=== PATIENT | male | born 1935 | race Caucasian/White ===

== ENCOUNTER 2019-05-21 08:56 | Outpatient (CLI) | payer MEDICARE, SELFPAY ==
--- NOTE | 2019-05-21 09:08 | USCV_ITS ---
Benny Dooley Age: 83 Gender: M : 1935 Exam Date: 05/21/2019 09:16 Ordering Phys: Manny Shaffer MD (Andy) ([email or web address] [place] Technologist: Emma Boyce [place] [facility] [place]: ATHEROSCLEROSIS Risk Factors: Previous Vascular Surgery: Right Brachial BP: / Left Brachial BP: / Right Left Velocity (cm/s) Spectral Plaque Velocity (cm/s) Spectral Plaque Syst/Diast Broadening Syst/Diast Broadening 105.80/14.30 Prox CCA 96.20 / 16.50 125.70/22.10 Mid CCA 96.20 / 11.90 98.10/ 16.50 Distal CCA 70.50 / 11.90 77.80/ 16.20 Prox ICA 116.90/ 15.00 89.60/ 13.00 Mid ICA 157.00/ 21.70 108.00/10.80 Distal ICA 115.30/ 30.10 205.80 ECA 262.10 0.86 ICA/CCA 1.63 Antegrade Vertebral Antegrade 23.30/ 5.90 cm/s 90.20/ 18.40 cm/s Tri Subclavian Bi 130.0 155.3 0 0 FINDINGS Comparison:. 10/23/18 Mild to moderate diffuse atherosclerotic plaque without elevation of velocities. Similar to to the prior exam. Bilateral antegrade vertebral arteries. CONCLUSIONS Bilateral ICA stenosis less than 50%. Similar atherosclerosis as compared to the prior exam. Dr. Fabi Archuleta DO (Electronically Signed) Final Date: 21 May 2019 12:17 S
== END 2019-05-21 08:57 | disposition home or self-care (01) ==
LOC: US 08:58
PROVIDERS: Family Provider Family Medicine; PCP Family Medicine; Visit Provider Thoracic Surgery (Cardiothoracic Vascular Surgery)
DX: I65.23 Occlusion and stenosis of bilateral carotid arteries (principal)
CPT/HCPCS: 93880

== ENCOUNTER 2019-11-27 13:28 | Outpatient (CLI) | payer MEDICARE, SELFPAY ==
--- NOTE | 2019-11-27 13:30 | USCV_ITS ---
MiahBenny dove Age: 84 Gender: M : 1935 Exam Date: 11/27/2019 14:05 Ordering Phys: Manny Shaffer MD (Andy) ([facility] [place] Technologist: Doerne Garza Exam Location: [facility] [place] Indication: Carotid stenosis Risk Factors: None Right Brachial BP: / Left Brachial BP: / Right Left Velocity (cm/s) Spectral Plaque Velocity (cm/s) Spectral Plaque Syst/Diast Broadening Syst/Diast Broadening 108.10/9.90 Prox CCA 122.20/ 8.40 111.40/14.30 Mid CCA 125.10/ 12.80 97.40/ 12.00 Distal CCA 162.90/ 18.10 95.30/ 13.80 Prox ICA 143.70/ 10.30 113.00/19.60 Mid ICA 108.90/ 14.20 92.30/ 13.80 Distal ICA / 153.80 ECA 316.50 1.01 ICA/CCA 1.15 Antegrade Vertebral Antegrade 23.20/ 4.10 cm/s 72.30/ 9.20 cm/s Tri Subclavian Tri 86.90 163.7 0 CONCLUSIONS Prior Bilateral CEA right ICA stenosis <50%. Left ICA stenosis 50-69% at the lower end of the range by strict velocity criteria Normal antegrade Doppler flow noted in the right vertebral artery. Normal antegrade Doppler flow noted in the left vertebral artery. West Wilson MD (Electronically Signed) Final Date: 30 November 2019 18:36 S
== END 2019-11-27 13:29 | disposition home or self-care (01) ==
PROVIDERS: Family Provider Family Medicine; PCP Family Medicine; Visit Provider Thoracic Surgery (Cardiothoracic Vascular Surgery)
DX: I65.23 Occlusion and stenosis of bilateral carotid arteries (principal)
CPT/HCPCS: 93880

== ENCOUNTER 2020-06-02 12:37 | Outpatient (CLI) | payer MEDICARE, SELFPAY ==
--- NOTE | 2020-06-02 12:45 | USCV_ITS ---
MiahBenny dove Age: 84 Gender: M : 1935 Exam Date: 06/02/2020 12:58 Ordering Phys: Manny Shaffer MD (Andy) ([facility] [place] Technologist: Emma Boyce Exam Location: [facility] [place] Indication: STENOSIS Risk Factors: Previous Vascular Surgery: Right Brachial BP: / Left Brachial BP: / Right Left Velocity (cm/s) Spectral Plaque Velocity (cm/s) Spectral Plaque Syst/Diast Broadening Syst/Diast Broadening 101.40/16.50 Prox CCA 98.70 / 13.90 135.60/19.80 Mid CCA 93.50 / 18.10 130.10/16.50 Distal CCA 93.50 / 18.10 76.60/ 15.10 Prox ICA 132.70/ 19.50 123.10/25.50 Mid ICA 162.00/ 27.30 121.90/22.10 Distal ICA 128.70/ 29.10 224.40 ECA 331.80 0.91 ICA/CCA 1.73 Antegrade Vertebral Antegrade 16.70/ 5.90 cm/s 78.10/ 16.90 cm/s Tri Subclavian Tri 93.90 119.5 0 FINDINGS comparison 11/27/2019 CONCLUSIONS Prior Bilateral CEA. Velocities are similiar to 11/2019 Right ICA stenosis <50%. Moderate atheromatous plaque right carotid bulb/ICA. Left ICA stenosis 50-69%. Moderate atheromatous plaque left carotid bulb/ICA. Normal antegrade Doppler flow noted in the right vertebral artery. Normal antegrade Doppler flow noted in the left vertebral artery. eWst Wilson MD (Electronically Signed) Final Date: 02 June 2020 15:32 S
== END 2020-06-02 12:38 | disposition home or self-care (01) ==
LOC: RAD 12:39
PROVIDERS: PCP Family Medicine; Visit Provider Thoracic Surgery (Cardiothoracic Vascular Surgery)
DX: I65.23 Occlusion and stenosis of bilateral carotid arteries (principal)
CPT/HCPCS: 93880

== ENCOUNTER → 2020-11-02 09:40 | Outpatient (BNVA) | payer MEDICARE, SELFPAY | PROVIDERS: PCP Family Medicine; Visit Provider Thoracic Surgery (Cardiothoracic Vascular Surgery) | DX: Z01.818 Encounter for other preprocedural examination (principal); Z20.822 Contact with and (suspected) exposure to COVID-19 | CPT/HCPCS: 87635 ==

== ENCOUNTER 2020-11-07 16:17 | Observation (INO) | payer MEDICARE, SELFPAY ==
--- NOTE | 2020-11-02 08:27 | ECG_ITS ---
[facility] Test Date: 2020-11-02 Pat Name: Benny Dooley Department: Room: Gender: Male Aligning Checker: : 1935 Requested By: Manny Shaffer Order Number: [id number] Flores MD: Zhane Benton M.D. Measurements Intervals [place] Rate: 118 P: 258 SD: 150 QRS: -64 QRSD: 134 T: 86 QT: 354 QTc: 497 Interpretive Statements ECTOPIC ATRIAL TACHYCARDIA WITH OCCASIONAL VENTRICULAR PREMATURE COMPLEXES LEFT AXIS DEVIATION [QRS AXIS < -30] RIGHT BUNDLE BRANCH BLOCK LEFT VENTRICULAR HYPERTROPHY AND ST-T CHANGE Compared to ECG 04/22/2015 15:32:59 Ventricular premature complex(es) now present Left-axis deviation now present Right bundle-branch block now present Left ventricular hypertrophy now present ST (T wave) deviation now present Sinus bradycardia no longer present T-wave abnormality no longer present Electronically Signed On 11-03-2020 10:40:33 CDT by Zhane Benton M.D. [id number]
[2020-11-02 08:28] VITALS: BMI 23.6
--- NOTE | 2020-11-02 09:01 | ANES.PREANE2 ---
Pre-Anesthetic Assessment Pre-Anesthetic Assessment: Height/Weight: Height 1.75 m Weight 72.575 kg Preop Diagnosis: heart block Proposed Procedure: Operation Date: 11/07/20 13:00 Proposed Procedures p Pacemaker Insertion(Not Applicable) - Manny Shaffer MD Familial anesthetic complications: none Social: Social History: No alcohol and No tobacco Exam: Pre-Anes Outpt Exam: alert, oriented x 3, clear to auscultation bilaterally and regular rate & rhythm Airway: Cervical ROM: WNL MP: 2 Dentition: False CV/HEM: CV/HEM: Afib, Arrythmia and HTN Comments: avr : : Chronic renal Insufficiency Metabolic: Metabolic: Hyperlipidemia Neuropsych: Comments: carotid stenosis Anesthetic Plan: ASA status: 4 Anesthesia: MAC Risk of > 500 ml blood loss (7ml/kg in children): No PFSH Anesthesia PFSH: Medical History (Updated 10/16/20 @ 15:11 by Jaime Sanz M.D) Aortic heart murmur Aortic stenosis Carotid stenosis, bilateral Chronic kidney disease (CKD) Essential hypertension Hyperlipidemia Palpitations Tobacco abuse Surgical History S/P AVR (aortic valve replacement) S/P carotid endarterectomy Family History Mother Hypertension Father CHF (congestive heart failure) Social History Alcohol intake: never Household members: spouse Marital status: service: Yes branch: [employer] branch details: 7 YEARS Current occupational status: retired Current gender identity: Male Brittany/Orthodox: Other Data Anesthesia Cardiac Studies: Holter Monitor 09/06/20
[2020-11-02 09:15] LABS: Basophils # 0.1 10^3/uL (0.0-0.1); Basophils % 0.7 %; Eosinophils # 0.3 10^3/uL (0.0-0.8); Eosinophils % 3.8 %; Hematocrit 42.4 % (42.0-52.0); Hemoglobin 14.3 g/dL (11.7-16.6); Lymphocytes # 1.4 10^3/uL (0.8-4.8); Lymphocytes % 18.7 %; Mean Corpuscular HGB Conc 33.7 g/dL (30.0-36.0); Mean Corpuscular Hemoglobin 31.4 pg (28.0-34.0); Mean Platelet Volume 10.9 fL (7.4-10.4); Monocytes # 0.8 10^3/uL (0.2-0.9); Monocytes % 10.5 %; Nucleated Red Blood Cells % 0 %; Platelet Count 147 10^3/cmm (130-400); Red Blood Count 4.56 10^6/uL (4.1-5.3); Red Cell Distribution Width 13.8 % (12.1-15.1); White Blood Count 7.4 10^3/uL (4.0-10.0)
[2020-11-02 09:27] LABS: Add Urine Microscopic? YES; Bilirubin Urine Neg (Negative); Blood Urine Neg (Negative); Glucose Urine UA Norm (Normal); Ketones Urine Negative (Negative); Leukocyte Esterase Urine 2+ (Negative); Nitrate Urine Negative (Negative); Protein Urine Neg (Negative); Sulfosalicylic Acid Urine Negative (Negative); Urine Appearance SL Hazy (CLEAR); Urine Color Yellow (Yellow); Urobilinogen Urine Norm (Negative); pH Urine 8 (5-7)
[2020-11-02 09:28] LABS: Add Urine Culture? Yes; Bacteria Urine 1+ /hpf; Squamous Epithelial Cell Urine 0-4 /hpf (0-5); WBC Urine 15-25 /hpf (0-5)
[2020-11-02 09:33] LABS: Anion Gap 13.3 (5-19); Blood Urea Nitrogen 27 mg/dL (8-23); Calcium 9.7 mg/dL (8.5-10.5); Carbon Dioxide 30 mmol/L (22-29); Chloride 101 mmol/L (98-107); Glucose 104 mg/dL (65-115); Osmolality Calculated 295 mOsm/kg (285-295); Potassium 4.3 mmol/L (3.5-5.1); Sodium 140 mmol/L (136-145)
[2020-11-07] VITALS (13 sets, daily range): BP systolic 129–173; BP diastolic 68–98; PULSE 87–118; RESP 16–20; TEMP 36.2–36.8; O2SAT 92–96
--- NOTE | 2020-11-07 | SCC_ITS ---
Procedure Done: Dual-chamber pacemaker implantation 206.6 seconds of fluoroscopic guidance, for a cumulative dose of 27.82 mGy, was provided to Dr. Shaffer by the radiology department. C-arm images of the chest were saved for the patient's permanent record. [employer] [facility]
--- NOTE | 2020-11-07 11:30 | SC_ITS ---
WS: [id number] C-arm FL for Pacemaker REASON FOR EXAM: Pacemaker implantation FINDINGS: Single image taken during pacemaker placement. Battery pack overlying the left upper anterolateral ch est. 2 intact leads transvenous left subclavian vein. No imaging to demonstrate cardiac position of t he leads. SC/C-arm FL for Pacemaker IMPRESSION: Pacemaker placement as above.
--- NOTE | 2020-11-07 11:30 | XR_ITS ---
WS: [id number] XR chest 1V portable [id number] REASON FOR EXAM: Preop for pacemaker implantation FINDINGS: The chest is unchanged compared to 04/22/2015. There is been previous sternotomy and valve replacement. The heart is mildly enlarged. Calcified granulomatous changes in both hemithoraces. No active pulmonary parenchymal pleural disease . Bony thorax is intact. XR/XR chest 1V portable [id number] IMPRESSION: No acute chest abnormality.
--- NOTE | 2020-11-07 14:26 | W.PM.OPSUD ---
Surgery/Procedure H&P Update DATE OF PROCEDURE: November 07, 2020 DATE H&P PERFORMED: 10/12/20 H&P UPDATE INFORMATION: I have reviewed H&P completed within last 30 days, I have examined patient prior to procedure and No changes to prior documentation PREOP DIAGNOSIS: Highly symptomatic medically refractory bradycardia with pauses PLANNED PROCEDURE: Operation Date: 11/07/20 12:50 Proposed Procedures p Pacemaker Insertion(Not Applicable) - Manny Shaffer MD
--- NOTE | 2020-11-07 14:37 | P.ANESUD_ITS ---
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 Proposed Procedure: Operation Date: 11/07/20 12:50 Proposed Procedures p Pacemaker Insertion(Not Applicable) - Manny Shaffer MD Any changes to Pre-Anesthetic Assessment?: No Last Intake: Intake Last Liquid Date 11/06/20 Last Liquid Time 22:00 Last Solid Date 11/06/20 Last Solid Time 20:30 Vitals: Temperature 98.1 F 11/07/20 12:11 Temperature Source Temporal Artery S can 11/07/20 12:11 Pulse Rate 98 11/07/20 12:11 Respiratory Rate 20 H 11/07/20 12:11 Blood Pressure 155/96 11/07/20 12:11 Blood Pressure Yolanda n 115 11/07/20 12:11 Pulse Oximetry 96 11/07/20 12:11 Oxygen Delivery Me thod 11/07/20 12:11 Exam: Pre-Anes Outpt Exam: alert, oriented x 3, clear to auscultation bilaterally and regular rate & rhythm Cardiac Studies: Holter Monitor 09/06/20
[2020-11-07] MEDS: vancomycin 1,500 MG/300 ML PIGGYBACK 200 MG IV (14:52)
[2020-11-07] MEDS: vancomycin 1,000 MG SDV 1000 MG IRRIGATION (14:53)
[2020-11-07] MEDS: lidocaine 1% INJ 20 mL SUBCUT (15:18)
--- NOTE | 2020-11-07 16:45 | ANE.PACU2 ---
Inpatient post-anesthesia follow up: Airway intact: Yes Vital signs: Temperature 97.3 F Pulse Rate 112 Respiratory Rate 20 Blood Pressure 146/89 Pulse Oximetry 92 Oxygen Delivery Me thod Room Air Oxygen Flow Rate Fraction of Inspir ed Oxygen Hydration adequate: Yes Nausea and vomiting: No Pain level: 1 Mental status: Baseline
--- NOTE | 2020-11-07 16:49 | P.OP_ITS ---
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 Dooley is an 85-year-old gentleman status post AVR several years ago who has atrial fibrillation/flutter with pauses including documented prolonged pause of 5 seconds with presyncopal symptoms. This was confirmed by Holter monitoring. He has yet to agree to anticoagulation. Pacemaker implantation has been recommended as cardiology continues to medically manage his atrial fibrillation. Details and risk of the procedure were carefully and frankly discussed. Proper consents have been reviewed and signed. Procedure: Procedure: Mr. Dooley was taken to the OR suite and placed in the supine position over a shoulder roll. He received conscious sedation with continuous anesthesia monitoring by. His entire chest was sterilely prepped and draped. 1% lidocaine was infiltrated in the left subclavicular region. While in Trendelenburg position, utilizing modified seldinger technique, and ultimately hand-held ultrasound guidance, 2 guidewires were placed in the left subclavian vein. This was confirmed in position by fluoroscopy. Next, after infiltration with lidocaine, a subcutaneous pocket was created beginning from the exit point of the guidewire and extending laterally and inferiorly. Cautery was utilized to create the pocket just above the pectoralis musculature. Hemostasis was confirmed. An antibiotic-soaked sponge was placed in the wound. A dilator and tear-away sheath was placed over the first guidewire and advanced under fluoroscopy. Guidewire and dilator were removed. Next using a combination of curved and straight stylettes, the right ventricular lead was placed in position by fluoroscopy. The distal screw was extended. Interrogat ion was then performed confirming appropriate parameters. The tear-away sheath was then removed and the ventricular lead was sewn to the floor of the subcutaneous pocket. In a similar fashion dilator and tear-away sheath was placed over the 2nd guide wire and advanced under fluoroscopy. Guidewire and dilator were removed. Straight and curved stylettes were used to position the right atrial lead with fluoroscopy. Distal screw was extended. Interrogation was then performed. Tear-away sheath was then removed. Atrial lead was secured to the floor of the subcutaneous pocket. Pocket was irrigated with antibiotic solution and hemostasis again confirmed. Pacing generator was brought into the field, and after confirmation of hemostasis in the subcutaneous pocket, the leads were connected to the generator with appropriate capture. The entire system was interrogated by fluoroscopy. Leads and generator were secured in the pocket. Sponge and needle count was correct. The wound was then closed in 2 layers of 3-0 Vicryl suture. Skin was reapproximated in a subcuticular manner with 4-0 Monocryl suture. A pressure dressing was applied. The left arm was placed in a sling. The patient had equal breath sounds bilaterally. He was then transferred to the PACU, where chest x-ray is currently pending. I did correctional counselor with his at the completion of the procedure. It is noted that he was in atrial fibrillation at the time of the atrial wire placement, therefore interrogation was limited. Following are the specifics of this system: Right ventricular lead is 58 cm and model 5076. Serial number [id number] Right atrial lead is 52 cm and is model 4076. Serial number [id number]. Ventricular lead had sensing of 5.2 mV with an impedance of 665 ohms. Threshold was 1.0 V Atrial lead had sensing of 1.25 mV with an impedance of 437 ohms. Threshold was unobtainable, as patient was in atrial fibrillation.. BioVidria generator: Model # [id number] Serial #[id number]
[2020-11-07] MEDS: atorvastatin 40 mg Tablet 80 MG PO (21:00)
[2020-11-07] MEDS: metoprolol tartrate 25 mg Tablet PO (21:01)
[2020-11-08 04:00] VITALS: BP 148/78; PULSE 99; RESP 17; TEMP 36.6; O2SAT 92
[2020-11-08] MEDS: hydroCHLOROthiazide 25 mg Tablet 12.5 MG PO (05:17)
[2020-11-08 06:00] VITALS: PULSE 114
--- NOTE | 2020-11-08 06:00 | ECG_ITS ---
[facility] Test Date: 2020-11-08 Pat Name: Benny Dooley Department: Room: 262 Gender: Male Data Librarian: : 1935 Requested By: Manny Shaffer Order Number: [id number] Sandra MD: Rodrigo Padron M.D. Measurements Intervals [place] Rate: 115 P: 265 ID: [id number] QRS: -70 QRSD: 134 T: 91 QT: 357 QTc: 495 Interpretive Statements ECTOPIC ATRIAL TACHYCARDIA RIGHT BUNDLE BRANCH BLOCK [120+ ms QRS DURATION, UPRIGHT V1, 40+ ms S IN I/aVL/V4/V5/V6] LEFT ANTERIOR FASCICULAR BLOCK [QRS AXIS <= -45, QR IN I, RS IN II] LEFT VENTRICULAR HYPERTROPHY AND ST-T CHANGE [VOLTAGE CRITERIA PLUS ST/T ABNORMALITY] Compared to ECG 11/02/2020 08:31:34 Left anterior fascicular block now present Ventricular premature complex(es) no longer present Left-axis deviation no longer present ST (T wave) deviation still present Electronically Signed On 11-08-2020 23:46:53 CDT by Rodrigo Padron M.D. [id number]
--- NOTE | 2020-11-08 06:05 | PC.NURSE ---
PACEMAKER Pressure dressing removed this am. Island dressing left in place. Pacemaker interrogation done
--- NOTE | 2020-11-08 06:44 | P.DS_ITS ---
Discharge Providers Date of Admission: 11/07/20 16:17 Date of Discharge: November 08, 2020 Attending Provider at Admission: Manny Shaffer MD Attending Provider at Discharge: Manny Shaffer MD Primary Care Provider: Ender Irizarry MD Diagnoses at Discharge Discharge Diagnosis (1) Sick sinus syndrome: Status: Acute Reason for Visit Reason for Visit: Heart block Hospital Course Hospital Course Mr. Dooley is an 85-year-old gentleman status post aortic valve replacement several years ago. He is developed atrial fibrillation with tachycardia and RVR but with also documented sinus pauses up to 5 seconds with presyncope as noted on recent event recording. Dual-chamber pacemaker implantation was recommended to assist with allowing continued medical management of his arrhythmia. He was electively admitted yesterday, November 07 underwent dual-chamber pacemaker implantation. He is noted to be in atrial fibrillation at the time of his implantation. Postop day, he has done well. Surgical site is clean and dry. System interrogation this morning reveals appropriate functioning. He will be discharged home today in stable condition with scheduled follow-up in [facility] pac[facility] clinic in 1 week. Physical Exam Chest: COMMONS NORMALS: normal inspection of the chest OTHER: Surgical site is clean and dry. No evidence for fluid collection. Resp: COMMON NORMALS: normal respiratory effort and clear to auscultation bilaterally EFFORT & INSPECTION: Yes able to speak in complete sentences and Yes symmetric chest movement AUSCULTATION: clear to auscultation bilaterally Cardio: RATE: tachycardic (Heart rate 115 with atrial arrhythmia) Discharge Data Data Completed and Pending: Completed Studies During Hospitalization Category Date Time Status XR chest 1V luciana ble [id number] Routine Exams 11/07/20 11:30 Completed Pending at discharge Category Date Time Status C-arm FL for Pace maker Routine Exams 11/07/20 11:30 Taken Vitals: Last Vital Signs Temp 97.8 F 11/08/20 04:00 Pulse 114 H 11/08/20 06:00 Resp 17 11/08/20 04:00 BP 148/78 11/08/20 04:00 Pulse Ox 92 11/08/20 04:00 Discharge Plan Discharge Patient Disposition: Home Condition: Stable Prescriptions: New hydrocodone-acetaminophen 5-325 mg Tablet 1 tab PO Q6H PRN (Reason: Moderate Pain) Qty: 12 RF: 0 Continued tamsulosin [Flomax] 0.4 mg capsule 0.4 mg PO DAILY RF: 0 atorvastatin 80 mg tablet 80 mg PO .HS RF: 0 losartan 100 mg tablet 100 mg PO DAILY RF: 0 metoprolol tartrate 25 mg tablet 25 mg PO BID RF: 0 aspirin [Adult Low Dose Aspirin] 81 mg tablet,delayed release (DR/EC) 81 mg PO DAILY RF: 0 omega-3 fatty acids [Fish Oil Concentrate] 1,000 mg capsule 1,000 mg PO BID RF: 0 multivitamin [Multiple Vitamins] Tablet 1 tab PO QAM RF: 0 amlodipine 10 mg tablet 10 mg PO DAILY Qty: 90 RF: 0 hydrochlorothiazide 25 mg tablet 12.5 mg PO QAM RF: 0 lansoprazole 15 mg Capsule,Delayed Release(Dr/Ec) 15 mg PO DAILY RF: 0 Discharge Orders: Discharge Order (Routine); Ordered 11/08/20 Ordered By: Manny Shaffer Referrals: [facility] [Provider Group] - 1 week (Pacemaker clinic) Discharge Diet: Usual diet Discharge Activity: Limit activity as instructed Patient Instructions: Opioid Safety Activity Restrictions/Additional Instructions: May remove bandage in 2 days May begin daily showers in 2 days No swimming or tub baths x 2 weeks No ointments on incision Report drainage, redness, heat, increased pain, or swelling to clinic Do not raise left arm above eye level for 1 week No heavy lifting or pulling with left arm x1 week Discharge Attestations Time Spent in Discharge Care*: less than 30 min Specific Discharge Activities: educating patient, discussing with case finishing machine adjuster/social workers/dc planners, documenting/other paperwork and evaluating patient/reviewing data Status at Discharge: Cognitive status at discharge: cognitively intact , Behavioral status at discharge: cooperative , Functional status at discharge: independent ambulation Overall status at discharge: patient is back to baseline Quality Metrics Clinical Quality Measures During this hospital stay, did patient experience: None Coding Level of Care Code Acute Chg FW DC note Diagnoses Sick sinus syndrome I49.5
[2020-11-08] MEDS: tamsulosin 0.4 mg Capsule PO (07:47)
[2020-11-08] MEDS: aspirin 81 mg EC Tablet PO (07:47)
[2020-11-08] MEDS: amlodipine 10 mg Tablet PO (07:48)
[2020-11-08] MEDS: pantoprazole DR 40 mg Tablet PO (07:48)
[2020-11-08 07:51] VITALS: BP 148/78
[2020-11-08] MEDS: metoprolol tartrate 25 mg Tablet PO (07:51)
[2020-11-08] MEDS: losartan 50 mg Tablet 100 MG PO (07:51)
[2020-11-08 08:00] VITALS: BP 180/92; PULSE 119; RESP 18; TEMP 36.6; O2SAT 94
[2020-11-08 10:36] VITALS: BP 180/92; PULSE 119; RESP 18; TEMP 36.6; O2SAT 94
--- NOTE | 2020-11-09 09:44 | PC.SOCIAL ---
discharge follow up call made. 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 patient is aware of follow up appointment with Kavya Mendez. Patient denies questions or concerns.
== END 2020-11-08 10:37 | disposition home or self-care (01) ==
LOC: MEDSURG 16:17
PROVIDERS: Admitting Provider Thoracic Surgery (Cardiothoracic Vascular Surgery); PCP Family Medicine; Visit Provider Thoracic Surgery (Cardiothoracic Vascular Surgery)
PROC: (CPT 33208; principal; 2020-11-07 12:40)
DX: I49.5 Sick sinus syndrome (principal); Z79.82 Long term (current) use of aspirin; I45.2 Bifascicular block; I48.91 Unspecified atrial fibrillation; I10 Essential (primary) hypertension; E78.5 Hyperlipidemia, unspecified; I65.23 Occlusion and stenosis of bilateral carotid arteries; Z82.49 Family history of ischemic heart disease and other diseases of the circulatory system
CPT/HCPCS: 33208; 71045; 76000; 80048; 81001; 85025; 87086; 93005; C1786; C1898; G0378; J2370; J2704; J3010; J3370

== ENCOUNTER 2021-01-23 10:30 | Outpatient (CLI) | payer MEDICARE, SELFPAY ==
--- NOTE | 2021-01-23 10:15 | USCV_ITS ---
MiahBenny dove Age: 85 Gender: M : 1935 Exam Date: 01/23/2021 10:50 Ordering Phys: Manny Shaffer MD (Andy) [place] [place] Technologist: Brady Rondon [place] [facility] [place]: OCCLUSION AND STENOSIS Risk Factors: Previous Vascular Surgery: Right Brachial BP: / Left Brachial BP: / Right Left Velocity (cm/s) Spectral Plaque Velocity (cm/s) Spectral Plaque Syst/Diast Broadening Syst/Diast Broadening 66.00/ 13.20 Prox CCA 91.10 / 12.40 98.70/ 21.80 Mid CCA 94.00 / 16.30 74.60/ 18.60 Distal CCA 102.50/ 21.00 74.50/ 18.90 Prox ICA 133.40/ 25.40 84.30/ 17.80 Mid ICA 163.00/ 32.90 109.60/27.60 Distal ICA 131.50/ 35.50 125.50 ECA 208.20 1.11 ICA/CCA 1.59 Antegrade Vertebral Antegrade 24.50/ 5.40 cm/s 90.60/ 18.80 cm/s Tri Subclavian Tri 126.8 110.2 0 0 CONCLUSIONS Right ICA stenosis <50%. Mild atheromatous plaque right carotid bulb/ICA. Left ICA stenosis 50-69%. Moderate atheromatous plaque left carotid bulb/ICA. Normal antegrade Doppler flow noted in the right vertebral artery. Normal antegrade Doppler flow noted in the left vertebral artery. West Wilson MD (Electronically Signed) Final Date: 23 January 2021 17:40 S
== END 2021-01-23 10:31 | disposition home or self-care (01) ==
LOC: RAD 10:37
PROVIDERS: PCP Family Medicine; Visit Provider Thoracic Surgery (Cardiothoracic Vascular Surgery)
DX: I65.23 Occlusion and stenosis of bilateral carotid arteries (principal)
CPT/HCPCS: 93880

== ENCOUNTER → 2021-06-09 09:18 | Outpatient (BNVA) | payer MEDICARE, SELFPAY | PROVIDERS: PCP Family Medicine; Visit Provider Internal Medicine Cardiovascular Disease | DX: Z45.010 Encounter for checking and testing of cardiac pacemaker pulse generator [battery] (principal) | CPT/HCPCS: 93280 ==

== ENCOUNTER → 2021-09-08 09:50 | Outpatient (BNVA) | payer MEDICARE, SELFPAY | PROVIDERS: PCP Family Medicine; Visit Provider Internal Medicine Cardiovascular Disease | DX: Z45.010 Encounter for checking and testing of cardiac pacemaker pulse generator [battery] (principal) | CPT/HCPCS: 93280 ==

== ENCOUNTER → 2021-09-18 10:41 | Outpatient (BNVA) | payer MEDICARE, SELFPAY | PROVIDERS: PCP Family Medicine; Visit Provider Internal Medicine Cardiovascular Disease | DX: I48.91 Unspecified atrial fibrillation (principal); Z95.2 Presence of prosthetic heart valve; Z95.0 Presence of cardiac pacemaker; I12.9 Hypertensive chronic kidney disease with stage 1 through stage 4 chronic kidney disease, or unspecified chronic kidney disease; N18.9 Chronic kidney disease, unspecified; Z87.891 Personal history of nicotine dependence; E78.01 Familial hypercholesterolemia; I65.23 Occlusion and stenosis of bilateral carotid arteries | CPT/HCPCS: 99214 ==

== ENCOUNTER 2021-11-30 09:13 | Outpatient (CLI) | payer MEDICARE, SELFPAY ==
[2021-11-30 10:12] LABS: Chol HDL Ratio 2.96 mg/dL (1.0-5.00); Cholesterol 145 mg/dL (0-200); HDL Cholesterol 49 mg/dL (60-100); LDL Cholesterol Calculated 79 mg/dL (50-129); LDL HDL Ratio 1.61 RATIO (0.00-3.22); Triglycerides 86 mg/dL (0-150)
== END 2021-11-30 09:14 | disposition home or self-care (01) ==
LOC: LAB 09:15
PROVIDERS: PCP Family Medicine; Visit Provider Internal Medicine Cardiovascular Disease
DX: E78.01 Familial hypercholesterolemia (principal)
CPT/HCPCS: 36415; 80061

== ENCOUNTER → 2021-12-29 09:51 | Outpatient (BNVA) | payer MEDICARE, SELFPAY | PROVIDERS: PCP Family Medicine; Visit Provider Internal Medicine Cardiovascular Disease | DX: Z45.010 Encounter for checking and testing of cardiac pacemaker pulse generator [battery] (principal) | CPT/HCPCS: 93280 ==

== ENCOUNTER → 2022-03-20 13:51 | Outpatient (BNVA) | payer MEDICARE, SELFPAY | PROVIDERS: PCP Family Medicine; Visit Provider Nurse Practitioner Family | DX: I48.91 Unspecified atrial fibrillation (principal); I65.23 Occlusion and stenosis of bilateral carotid arteries; Z95.0 Presence of cardiac pacemaker; I12.9 Hypertensive chronic kidney disease with stage 1 through stage 4 chronic kidney disease, or unspecified chronic kidney disease; N18.9 Chronic kidney disease, unspecified; Z87.891 Personal history of nicotine dependence | CPT/HCPCS: 99214 ==

== ENCOUNTER 2022-04-11 08:53 | Outpatient (CLI) | payer MEDICARE, SELFPAY ==
--- NOTE | 2022-04-11 08:45 | USCV_ITS ---
MiahBenny Age: 86 Gender: M : 1935 Exam Date: 04/11/2022 09:07 Ordering Phys: Kavya Mendez Technologist: SUMAN [place] [facility] [place]: Carotid Stenosis Risk Factors: Previous Vascular Surgery: RT Carotid done approx. 5 years ago. LT carotid done in 1994 Right Brachial BP: / Left Brachial BP: / Right Left Velocity (cm/s) Spectral Plaque Velocity (cm/s) Spectral Plaque Syst/Diast Broadening Syst/Diast Broadening 80.50/ 19.80 Hetro Prox CCA 114.40/ 25.00 Hetro 82.70/ 14.30 Hetro Mid CCA 86.80 / 25.00 Hetro 68.40/ 7.70 Hetro Distal CCA 142.90/ 15.50 Hetro 71.00/ 7.90 Hetro Prox ICA 104.10/ 15.50 Hetro 93.30/ 21.00 Hetro Mid ICA 118.10/ 28.00 Hetro 74.90/ 17.10 Hetro Distal ICA 118.10/ 23.30 Hetro 219.20 Hetro ECA 273.40 Hetro 1.13 ICA/CCA 0.83 Antegrade Vertebral Antegrade 81.50/ 7.90 cm/s 63.70/ 6.20 cm/s Tri Subclavian Tri 126.2 121.2 0 0 FINDINGS Comparison:. 01/23/21. Prior bilateral CEA's. No significant elevation of systolic or diastolic velocities. Diffuse bilateral scattered calcified plaque and intimal thickening throughout the common carotid arteries and extending through the bifurcation. Antegrade vertebral arteries. CONCLUSIONS Diffuse carotid atherosclerosis. Bilateral ICA stenosis less than 50%. Dr. Fabi Archuleta DO (Electronically Signed) Final Date: 11 April 2022 11:30 S
== END 2022-04-11 08:54 | disposition home or self-care (01) ==
LOC: RAD 08:57
PROVIDERS: PCP Family Medicine; Visit Provider Nurse Practitioner Family
DX: I65.23 Occlusion and stenosis of bilateral carotid arteries (principal)
CPT/HCPCS: 93880

== ENCOUNTER → 2022-04-17 15:43 | Outpatient (BNVA) | payer MEDICARE, SELFPAY | PROVIDERS: PCP Family Medicine; Visit Provider Internal Medicine Cardiovascular Disease | DX: Z45.010 Encounter for checking and testing of cardiac pacemaker pulse generator [battery] (principal) | CPT/HCPCS: 93296 ==

== ENCOUNTER 2022-05-28 14:55 | Outpatient (CLI) | payer MEDICARE, SELFPAY ==
--- NOTE | 2022-05-28 15:05 | US_ITS ---
WS: [id number] RENAL ULTRASOUND HISTORY: STAGE 3 CHRONIC KIDNEY DISEASE COMPARISON: 02/10/2013 TECHNIQUE: 2-D and color Doppler imaging of the kidney submitted. Right kidney: 8.9 cm x 4.4 cm x 4.6 cm. Cortex: 1.0 cm Normal echogenicity. Kidney is low normal size. No hydronephrosis or mass. Left kidney: 9.1 cm x 4.8 cm x 4.0 cm. Cortex: 1.2 cm Normal echogenicity with no hydronephrosis or mass. Aorta: Normal. Urinary Bladder: Normal distention. Prostate gland is mildly enlarged and heterogeneous measuring 4.0 x 4.7 x 3.5 cm. US/US renal BI* [id number] IMPRESSION: 1. No hydronephrosis or solid mass. 2. Normal echogenicity. No cortical thinning.
== END 2022-05-28 14:56 | disposition home or self-care (01) ==
LOC: RAD 14:58
PROVIDERS: PCP Family Medicine; Visit Provider Internal Medicine Nephrology
DX: N18.32 Chronic kidney disease, stage 3b (principal)
CPT/HCPCS: 76770

== ENCOUNTER → 2022-07-17 16:13 | Outpatient (BNVA) | payer MEDICARE, SELFPAY | PROVIDERS: PCP Family Medicine; Visit Provider Internal Medicine Cardiovascular Disease | DX: Z45.010 Encounter for checking and testing of cardiac pacemaker pulse generator [battery] (principal) | CPT/HCPCS: 93296 ==

== ENCOUNTER → 2022-09-18 08:37 | Outpatient (BNVA) | payer MEDICARE, SELFPAY | PROVIDERS: PCP Family Medicine; Visit Provider Dermatology | DX: C44.329 Squamous cell carcinoma of skin of other parts of face (principal) | CPT/HCPCS: 12053; 17311 ==

== ENCOUNTER → 2022-09-25 09:59 | Outpatient (BNVA) | payer MEDICARE, SELFPAY | PROVIDERS: PCP Family Medicine; Visit Provider Internal Medicine Cardiovascular Disease | DX: I48.91 Unspecified atrial fibrillation (principal); Z95.2 Presence of prosthetic heart valve; Z95.0 Presence of cardiac pacemaker; E78.01 Familial hypercholesterolemia; I65.23 Occlusion and stenosis of bilateral carotid arteries; I12.9 Hypertensive chronic kidney disease with stage 1 through stage 4 chronic kidney disease, or unspecified chronic kidney disease; N18.9 Chronic kidney disease, unspecified; Z87.891 Personal history of nicotine dependence; Z79.82 Long term (current) use of aspirin | CPT/HCPCS: 99214 ==

== ENCOUNTER → 2022-10-02 08:55 | Outpatient (BNVA) | payer MEDICARE, SELFPAY | PROVIDERS: PCP Family Medicine; Visit Provider Dermatology | DX: Z48.02 Encounter for removal of sutures (principal) | CPT/HCPCS: 99024 ==

== ENCOUNTER → 2023-03-04 13:09 | Outpatient (BNVA) | payer MEDICARE, SELFPAY | PROVIDERS: PCP Family Medicine; Visit Provider Dermatology | DX: Z85.828 Personal history of other malignant neoplasm of skin (principal); D48.5 Neoplasm of uncertain behavior of skin; L57.0 Actinic keratosis; L81.4 Other melanin hyperpigmentation; L57.8 Other skin changes due to chronic exposure to nonionizing radiation; D69.2 Other nonthrombocytopenic purpura | CPT/HCPCS: 11102; 17000; 99213 ==

== ENCOUNTER → 2023-03-29 15:11 | Outpatient (BNVA) | payer MEDICARE, SELFPAY | PROVIDERS: PCP Family Medicine; Visit Provider Internal Medicine | DX: Z45.010 Encounter for checking and testing of cardiac pacemaker pulse generator [battery] (principal) | CPT/HCPCS: 93296 ==

== ENCOUNTER → 2023-06-11 13:45 | Outpatient (BNVA) | payer MEDICARE, SELFPAY | PROVIDERS: PCP Family Medicine; Visit Provider Dermatology | DX: L57.0 Actinic keratosis (principal); L82.1 Other seborrheic keratosis; L81.4 Other melanin hyperpigmentation; Z85.828 Personal history of other malignant neoplasm of skin | CPT/HCPCS: 17000; 99214 ==

== ENCOUNTER → 2023-07-08 10:31 | Outpatient (BNVA) | payer MEDICARE, SELFPAY | PROVIDERS: PCP Family Medicine; Visit Provider Internal Medicine Cardiovascular Disease | DX: R07.9 Chest pain, unspecified (principal); I65.23 Occlusion and stenosis of bilateral carotid arteries; Z95.2 Presence of prosthetic heart valve; R00.2 Palpitations; I10 Essential (primary) hypertension; I48.91 Unspecified atrial fibrillation; Z95.0 Presence of cardiac pacemaker; I45.9 Conduction disorder, unspecified; I51.7 Cardiomegaly | CPT/HCPCS: 93005; 99214 ==

== ENCOUNTER 2023-07-19 11:43 | Outpatient (CLI) | payer MEDICARE, SELFPAY ==
--- NOTE | 2023-07-19 12:00 | USCV_ITS ---
Benny Dooley Age: 87 Gender: M : 1935 Exam Date: 07/19/2023 11:50 Ordering Phys: Rodrigo Padron MD ([email or web address]) Technologist: ADRIANNE Exam Location: [facility] – [place] Indication: Stenosis Risk Factors: Previous Vascular Surgery: Right Brachial BP: / Left Brachial BP: / Right Left Velocity (cm/s) Spectral Plaque Velocity (cm/s) Spectral Plaque Syst/Diast Broadening Syst/Diast Broadening 86.70/ 19.30 Prox CCA 107.50/ 12.30 93.70/ 17.30 Mid CCA 112.50/ 19.80 81.00/ 12.60 Distal CCA 99.90 / 15.30 89.20/ 20.50 Prox ICA 99.00 / 16.10 104.70/26.10 Mid ICA 101.10/ 20.20 107.60/17.20 Distal ICA 114.50/ 29.20 184.80 ECA 252.20 1.30 ICA/CCA 1.10 Antegrade Vertebral Antegrade 27.50/ 7.30 cm/s 54.80/ 15.50 cm/s Tri Subclavian Tri 88.00 119.2 0 FINDINGS Intimal thickening in the common carotid artery Minimal plaques the bifurcation. Antegrade flow in the vertebral arteries bilaterally. Elevated Doppler flow velocity in the left external carotid artery CONCLUSIONS Minimal plaques at the bifurcations bilaterally suggesting less than 50% stenosis. Elevated velocity in the left external carotid artery, suggesting hemodynamically significant stenosis. Compared to the study from 04/11/2022, there may not be a significant change Dr Rodrigo Padron MD [facility] (Electronically Signed) Final Date: 22 Jul 2023 12:11 S
== END 2023-07-19 11:44 | disposition home or self-care (01) ==
LOC: RAD 11:43
PROVIDERS: PCP Family Medicine; Visit Provider Internal Medicine Cardiovascular Disease
DX: I65.23 Occlusion and stenosis of bilateral carotid arteries (principal)
CPT/HCPCS: 93880

== ENCOUNTER → 2023-10-02 13:18 | Outpatient (BNVA) | payer MEDICARE, SELFPAY | PROVIDERS: PCP Family Medicine; Visit Provider Internal Medicine | DX: Z45.010 Encounter for checking and testing of cardiac pacemaker pulse generator [battery] (principal) | CPT/HCPCS: 93296 ==

== ENCOUNTER → 2023-10-14 14:17 | Outpatient (BNVA) | payer MEDICARE, SELFPAY | PROVIDERS: PCP Family Medicine; Visit Provider Nurse Practitioner Family | DX: L57.0 Actinic keratosis (principal); L82.1 Other seborrheic keratosis; L81.4 Other melanin hyperpigmentation; Z85.828 Personal history of other malignant neoplasm of skin | CPT/HCPCS: 17000; 99213 ==

== ENCOUNTER → 2024-01-14 10:03 | Outpatient (BNVA) | payer MEDICARE, SELFPAY | PROVIDERS: PCP Family Medicine; Visit Provider Internal Medicine Cardiovascular Disease | DX: Z95.2 Presence of prosthetic heart valve (principal); E78.01 Familial hypercholesterolemia; I48.91 Unspecified atrial fibrillation; Z95.0 Presence of cardiac pacemaker; I12.9 Hypertensive chronic kidney disease with stage 1 through stage 4 chronic kidney disease, or unspecified chronic kidney disease; N18.9 Chronic kidney disease, unspecified | CPT/HCPCS: 99214 ==

== ENCOUNTER → 2024-03-03 14:00 | Outpatient (BNVA) | payer MEDICARE, SELFPAY | PROVIDERS: PCP Family Medicine; Visit Provider Nurse Practitioner Family | DX: L82.1 Other seborrheic keratosis (principal); L81.4 Other melanin hyperpigmentation; L57.8 Other skin changes due to chronic exposure to nonionizing radiation; Z08 Encounter for follow-up examination after completed treatment for malignant neoplasm; Z85.828 Personal history of other malignant neoplasm of skin; D48.5 Neoplasm of uncertain behavior of skin; L57.0 Actinic keratosis | CPT/HCPCS: 11102; 17000; 99213 ==

== ENCOUNTER → 2024-04-01 09:35 | Outpatient (BNVA) | payer MEDICARE, SELFPAY | PROVIDERS: PCP Family Medicine; Visit Provider Internal Medicine | DX: Z45.018 Encounter for adjustment and management of other part of cardiac pacemaker (principal) | CPT/HCPCS: 93296 ==

== ENCOUNTER → 2024-06-22 10:53 | Outpatient (BNVA) | payer MEDICARE, SELFPAY | PROVIDERS: PCP Family Medicine; Visit Provider Nurse Practitioner Family | DX: L57.8 Other skin changes due to chronic exposure to nonionizing radiation (principal); X32.XXXA Exposure to sunlight, initial encounter; L81.4 Other melanin hyperpigmentation; L82.1 Other seborrheic keratosis; Z08 Encounter for follow-up examination after completed treatment for malignant neoplasm; Z85.828 Personal history of other malignant neoplasm of skin; D48.5 Neoplasm of uncertain behavior of skin; L57.0 Actinic keratosis | CPT/HCPCS: 11102; 17000; 99213 ==

== ENCOUNTER → 2024-07-01 11:21 | Outpatient (BNVA) | payer MEDICARE, SELFPAY | PROVIDERS: PCP Family Medicine; Visit Provider Internal Medicine Cardiovascular Disease | DX: Z45.018 Encounter for adjustment and management of other part of cardiac pacemaker (principal) | CPT/HCPCS: 93296 ==

== ENCOUNTER → 2024-07-14 11:08 | Outpatient (BNVA) | payer MEDICARE, SELFPAY | PROVIDERS: PCP Family Medicine; Visit Provider Nurse Practitioner Family | DX: I48.20 Chronic atrial fibrillation, unspecified (principal); Z79.82 Long term (current) use of aspirin; E78.01 Familial hypercholesterolemia; I10 Essential (primary) hypertension; Z95.2 Presence of prosthetic heart valve; Z95.0 Presence of cardiac pacemaker; R00.2 Palpitations | CPT/HCPCS: 36415; 80048; 83880; 99213 ==

== ENCOUNTER 2024-08-25 07:03 | Outpatient (CLI) | payer MEDICARE, SELFPAY ==
--- NOTE | 2024-08-25 07:00 | USCV_ITS ---
Benny Dooley Age: 88 Gender: M : 1935 Exam Date: 08/25/2024 07:30 Ordering Phys: Bhakti Harrison NP Technologist: Jaden Martinez [place] [facility] [place]: cp sob BP: 120 / 70 HR: 97 Rhythm: Sinus Technical Quality: Adequate MEASUREMENTS (Male / Female) Normal Values 2D ECHO LV Diastolic Diameter PLAX 4.5 cm 4.2 - 5.9 / 3.9 - 5.3 cm IVS Diastolic Thickness 1.6 cm 0.6 - 1.0 / 0.6 - 0.9 cm IVS Systolic Thickness 1.8 cm LVPW Diastolic Thickness 1.6 cm 0.6 - 1.0 / 0.6 - 0.9 cm LVPW Systolic Thickness 2.3 cm LVOT Diameter 2.0 cm LV Ejection Fraction 2D Teich 45.0 % LV Ejection Fraction MOD 4C 68.2 % LV Ejection Fraction MOD 2C 57.1 % LV Ejection Fraction 2C AL 57.5 % LA Diameter 5.1 cm RA Systolic Volume 4C AL 66.5 ml RA Systolic Volume 4C MOD 64.9 ml Aorta at Sinotubular Diameter 2.5 cm IVC Diameter 1.8 cm M-MODE LA Ao Ratio MM 1.8 AV Cusp Separation MM 2.1 cm DOPPLER AV Peak Velocity 340.2 cm/s LVOT Peak Velocity 88.0 cm/s AV Area Cont Eq vti 1.1 cm squared AV Area Cont Eq pk 0.8 cm squared MV Peak Velocity 159.0 cm/s MV Area PHT 8.9 cm squared Mitral E to A Ratio 1.9 TV Peak Velocity 342.5 cm/s TR Peak Velocity 352.0 cm/s TR Peak Gradient 49.6 mmHg TV Peak E Velocity 78.0 cm/s PV Peak Velocity 130.0 cm/s FINDINGS Left Ventricle Normal left ventricular size, systolic function and wall thickness, with no regional wall motion abnormalities. Left ventricular ejection fraction is estimated at 60 %. Grade III/IV diastolic dysfunction (restrictive filling pattern), severely elevated filling pressures. Right Ventricle Catheter/pacemaker wire visualized in the right ventricle. Right Atrium Moderately increased right atrial size. 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 Left Atrium Moderately increased left atrial size. Mitral Valve Moderately thickened mitral valve. Mild mitral annular calcification. No mitral valve stenosis. Moderate mitral valve regurgitation. Aortic Valve Mild aortic valve calcification. No aortic valve stenosis. Moderate aortic valve regurgitation. Tricuspid Valve Moderate tricuspid valve regurgitation. Pulmonic Valve Structurally normal pulmonic valve without significant stenosis. There is no pulmonic regurgitation. Pericardium Normal pericardium without effusion. Aorta Normal ascending aorta dimension. IVC The inferior vena cava appears normal. CONCLUSIONS Normal left ventricular size, systolic function and wall thickness, with no regional wall motion abnormalities. Left ventricular ejection fraction is estimated at 60 %. Grade III/IV diastolic dysfunction (restrictive filling pattern), severely elevated filling pressures. Catheter/pacemaker wire visualized in the right ventricle. Moderately increased right atrial size. 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 Moderately increased left atrial size. Moderately thickened mitral valve. Mild mitral annular calcification. No mitral valve stenosis. Moderate mitral valve regurgitation. Mild aortic valve calcification. No aortic valve stenosis. Moderate aortic valve regurgitation. Moderate tricuspid valve regurgitation. There is no pericardial effusion. Right atrial pressure is around 10 mm of mercury. Taurus Florian MD (Electronically Signed) Final Date: 09 September 2024 20:19 S
== END 2024-08-25 07:04 | disposition home or self-care (01) ==
PROVIDERS: PCP Family Medicine; Visit Provider Nurse Practitioner Family
DX: M79.89 Other specified soft tissue disorders (principal); R06.02 Shortness of breath; R93.1 Abnormal findings on diagnostic imaging of heart and coronary circulation; Z96.89 Presence of other specified functional implants; I34.81 Nonrheumatic mitral (valve) annulus calcification; I34.0 Nonrheumatic mitral (valve) insufficiency; I35.8 Other nonrheumatic aortic valve disorders; I35.1 Nonrheumatic aortic (valve) insufficiency; I07.1 Rheumatic tricuspid insufficiency
CPT/HCPCS: 93306

== ENCOUNTER → 2024-08-31 13:20 | Outpatient (BNVA) | payer MEDICARE, SELFPAY | PROVIDERS: PCP Family Medicine; Visit Provider Nurse Practitioner Family | DX: D04.39 Carcinoma in situ of skin of other parts of face (principal); L91.8 Other hypertrophic disorders of the skin; Z08 Encounter for follow-up examination after completed treatment for malignant neoplasm; Z85.828 Personal history of other malignant neoplasm of skin; L57.0 Actinic keratosis | CPT/HCPCS: 17000; 99213 ==

== ENCOUNTER → 2024-10-23 08:56 | Outpatient (BNVA) | payer MEDICARE, SELFPAY | PROVIDERS: PCP Family Medicine; Visit Provider Nurse Practitioner Family | DX: D04.39 Carcinoma in situ of skin of other parts of face (principal); L81.4 Other melanin hyperpigmentation; L57.8 Other skin changes due to chronic exposure to nonionizing radiation; Z08 Encounter for follow-up examination after completed treatment for malignant neoplasm; Z85.828 Personal history of other malignant neoplasm of skin | CPT/HCPCS: 99213 ==

== ENCOUNTER → 2024-12-23 10:39 | Outpatient (BNVA) | payer MEDICARE, SELFPAY | PROVIDERS: PCP Family Medicine; Visit Provider Internal Medicine Cardiovascular Disease | DX: Z45.018 Encounter for adjustment and management of other part of cardiac pacemaker (principal) | CPT/HCPCS: 93296 ==

== ENCOUNTER → 2025-02-04 15:27 | Outpatient (BNVA) | payer MEDICARE, SELFPAY | PROVIDERS: PCP Family Medicine; Visit Provider Internal Medicine Cardiovascular Disease | DX: E78.5 Hyperlipidemia, unspecified (principal); I48.91 Unspecified atrial fibrillation; Z79.82 Long term (current) use of aspirin; I10 Essential (primary) hypertension; Z95.2 Presence of prosthetic heart valve; Z95.0 Presence of cardiac pacemaker | CPT/HCPCS: 99214 ==